=== PATIENT | male | born 1945 | race Caucasian/White ===

== ENCOUNTER 2016-12-13 14:10 | Emergency (ER) | payer MEDICARE ==
[~2016-12-13] VITALS: Ht 175.3 cm; Wt 90.9 kg
[2016-12-13 14:13] VITALS: BP 109/79; PULSE 68; RESP 16; O2SAT 95
--- NOTE | 2016-12-13 14:29 | ED.REPORT ---
HPI-GI Bleed Date of Service December 13, 2016 ED Provider: Cornell Turner MD The patient is a 71 year old male with history of AVM malformations with surgical repairs, aortic aneurysm repair, and bladder cancer, who presents to the emergency department complaining of an episode of diarrhea with bright red stools that occurred at 1200 today. He feels fine at this time. He denies abdominal pain, nausea, vomiting, fever, black/tarry stools or chest pain. Nursing Notes Stated Complaint: BLEEDING FROM RECTUM Chief Complaint: General Complaint Nursing Notes Reviewed: Yes Allergies: Coded Allergies: No Known Allergies (Unverified Allergy, Unknown, 12/13/16) Scheduled Amlodipine (Amlodipine) 10 Mg Tablet 10 MG PO DAILY Doxazosin Mesylate (Doxazosin Mesylate) 8 Mg Tablet 8 MG PO HS Gemfibrozil (Gemfibrozil) 600 Mg Tablet 600 MG PO DAILY Metoprolol Tartrate (Metoprolol Tartrate) 25 Mg Tablet 12.5 MG PO BID Omeprazole (Omeprazole) 20 Mg Capsule.dr 20 MG PO BID General Time Seen by Provider: 14:30 Chief Complaint Chief Complaint: Stool bright red blood Bleeding Severity: Moderate Hx Obtained From: Patient, Spouse Arrived By: Walk-in Onset Occurred: 1 - 4 hours ago Symptom Duration: 1 - 15 minutes Progression Since Onset: Resolved Severity: Current: No pain currently Severity: Maximum: No pain Recent Healthcare: No recent doctor visit, No recent hospitalization Similar Sx Previous: No Past Medical History Past Medical History Bladder cancer AVM malformations with surgical repair Past Surgical History Aortic aneurysm repair AVM surgery Family History Noncontributory Smoking History Unknown if Ever Smoker Social History Alcohol Use: Denies alcohol use Other Social History: Good social support, , Local resident Ambulatory Status Independent Review of Systems Cardiovascular: Denies: Chest pain GI: Reports: Diarrhea, Hematochezia (bright red bloody stool), Denies: Abdominal pain, Melena, Nausea, Vomiting Complete sys rev & neg: except as marked. Physical Exam Initial Vital Signs Vital Signs (First) Date Time Temp Pulse Resp B/P Pulse Ox O2 Delivery O2 Flow Rate FiO2 12/13/16 14:13 36.7 68 16 109/79 95 12/13/16 15:36 Room Air Initial VS: Reviewed Head / Eyes: Atraumatic, Normocephalic, PERRL ENT: Mucous membranes moist, Conjunctiva normal, No scleral icterus Neck: Supple, Non-tender, Full range of motion Lymphatic: No lymphadenopathy Extremities: Vascular intact, Neuro intact, No swelling, No tenderness Skin: Warm, Dry, No cyanosis Neurologic: Alert, Oriented, Nonfocal Psychiatric: Mood/affect normal, Behavior normal, Normal thought content General/Constitutional: Awake, Alert Respiratory / Chest: Atraumatic, Breath sounds NL, Breath sounds = bilat, No respiratory distress, No rales, No rhonchi, No wheezing Cardiovascular: Heart rate NL, Regular rhythm, Heart sounds NL, No murmurs, Cap refill not delayed, Peripheral circulation NL Abdomen: Atraumatic, Soft, Non-tender, No guarding, No rebound, BS normoactive , No distention, No palpable mass, No pulsatile mass Rectum / Perineum: Atraumatic, Blood - occult heme -, No gross blood Interpretation & Diagnostics Lab Results Interpretation Result Diagram: 12/13/16 1440 12/13/16 1440 Test 12/13/16 14:40 White Blood Count 4.6th/mm3 (3.8-10.1) Red Blood Count 4.56mil/mm3 (4.40-5.80) Hemoglobin 13.5g/dL (13.8-17.2) Hematocrit 40.5% (41.0-50.0) Mean Corpuscular Volume 88.8fL (81-100) Mean Corpuscular Hemoglobin 29.6pg (27.0-35.0) Mean Corpuscular Hemoglobin Concent 33.3% (32.0-37.0) Red Cell Distribution Width 13.8% (12.3-15.4) Platelet Count 184bil/L (150-400) Neutrophils (%) (Auto) 66.3% (40-74) Lymphocytes (%) (Auto) 22.9% (14-46) Monocytes (%) (Auto) 8.4% (4-12) Eosinophils (%) (Auto) 0.4% (0-5) Basophils (%) (Auto) 0.2% (0-3) Prothrombin Time 12.0sec (8.1-12.5) Prothromb Time International Ratio 1.12ratio Sodium Level 141mEq/L (134-144) Potassium Level 3.4mEq/L (3.5-5.2) Chloride Level 100mEq/L (97-108) Carbon Dioxide Level 22mmol/L (18-29) Blood Urea Nitrogen 11mg/dL (8-27) Creatinine 1.25mg/dL (0.76-1.27) Estimat Glomerular Filtration Rate 60mL/min (>59) Glucose Level 194mg/dL (60-99) Calcium Level 8.7mg/dL (8.5-10.1) Total Bilirubin 0.4mg/dL (0.0-1.2) Aspartate Amino Transf (AST/SGOT) 27U/L (0-50) Alanine Aminotransferase (ALT/SGPT) 25U/L (0-44) Alkaline Phosphatase 66U/L (25-160) Troponin T < 0.010ug/L (0.0-0.011) Total Protein 6.8g/dL (6.4-8.4) Albumin 3.2g/dL (3.4-5.0) ECG Interpretation ECG Interpretation: Sinus tachycardia with a rate of 94 Supraventricular bigeminy RBBB Time: 14:36 Interpreted by: ED physician Re-Eval/Medical Decision Med Decision/Clinical Course 71-year-old male history of brain AVMs presenting with one episode of diarrhea earlier today with blood. On arrival guaiac negative no gross blood. Hemoglobin is stable. He has no abdominal pain or tenderness. He did have mild tachycardia initially which resolved with IV fluids. His labs are stable. Patient with diarrhea and GI bleed which is resolved. Given resolution of bleeding and guaiac negative with normal vital signs and stable hemoglobin, patient stable for discharge home with follow-up with primary doctor tomorrow. No prior history of GI bleeds. Return precautions given if any bloody stools, melena, lightheadedness, dizziness, any other signs symptoms of anemia or GI bleed. Source of Hx: Old records, Family Re-Evaluation/Progress : Time of Eval: 15:48 Re-Evaluation/Progress Note: Rechecked the patient. Discussed results, diagnosis, and plan for discharge. All questions were addressed. Counseled Regarding: Diagnosis, Lab results, Need for follow-up, When/why to return to ED Discharge & Departure Impression: Primary Impression: GI bleed GI bleed type/associated pathology: unspecified gastrointestinal hemorrhage type Qualified Code: K92.2 - Gastrointestinal hemorrhage, unspecified Additional Impression: Diarrhea Diarrhea type: unspecified type Qualified Code: R19.7 - Diarrhea, unspecified Disposition: Home Discharge Condition All VS Reviewed: Yes Condition: Stable Additional Instructions: Thank you for entrusting us with your care today. Your workup today included labs and an EKG. Your results are reassuring. You do however need to followup with your regular doctor for re-evaluation in the next day or two. You may need to have a colonoscopy. Return to the emergency department for any new or worsening symptoms, specifically: recurrent bloody stools, tarry stools, abdominal pain, nausea, vomiting, lightheadedness, dizziness, chest pain or shortness of breath. Referrals: Salinas Pastrana MD (PCP) Scribe Attestation Portions of this note were transcribed by Kat Lamar. I, Dr. Turner personally performed the history, physical exam and medical decision-making; I reviewed and confirmed the accuracy of the information in the transcribed note. Signed by: Petros Sebastian, 12/13/2016 at 1610. copies to: Salinas Pastrana MD, Ben M MD December 13, 2016 14:29 Kat Lamar December 13, 2016 14:35
[2016-12-13] MEDS ORDERED: 0.9% Sodium Chloride 1,000 ML IV ONE (14:40)
[2016-12-13 15:04] LABS: BASOPHILS % (AUTO) 0.2 % (0-3); EOSINOPHILS % (AUTO) 0.4 % (0-5); MONOCYTES % (AUTO) 8.4 % (4-12); Mean Corpuscular Hemoglobin 29.6 pg (27.0-35.0); Mean Corpuscular Volume 88.8 fL (81-100); NEUTROPHILS % (AUTO) 66.3 % (40-74); Platelet Count 184 bil/L (150-400)
[2016-12-13 15:20] LABS: INR 1.12 ratio
[2016-12-13 15:36] VITALS: BP 119/74; PULSE 87; RESP 19; O2SAT 93
[2016-12-13 15:43] LABS: TROPONIN T < 0.010 ug/L (0.0-0.011)
[2016-12-13] MEDS ORDERED: OMEP20CA11 PO (15:44)
[2016-12-13] MEDS ORDERED: METO25TA6 PO (15:46)
[2016-12-13] MEDS ORDERED: DOXA8TAB73 PO (15:46)
[2016-12-13] MEDS ORDERED: GEMF600T3 PO (15:46)
[2016-12-13] MEDS ORDERED: AMLO10TA3 PO (15:46)
[2016-12-13 17:16] VITALS: BP 123/82; PULSE 87; RESP 16; O2SAT 95
== END 2016-12-13 17:23 | disposition home or self-care (01) ==
LOC: SED 14:10
DX: K92.2 Gastrointestinal hemorrhage, unspecified (principal); R19.7 Diarrhea, unspecified
CPT/HCPCS: 36415; 80053; 84484; 85025; 85610; 86850; 93005; 96360; 99285; J7030

== ENCOUNTER 2017-03-14 10:45 | Day surgery (SDC) | payer MEDICARE ==
[~2017-03-14] VITALS: Ht 175.3 cm; Wt 90.7 kg
[~2017-03-14 10:45] MED LIST: 0.9% Sodium Chloride 1,000 ML IV SCH; AMLO10TA3 PO; CALC-72 PO; DOXA8TAB73 PO; GEMF600T3 PO; LOM PO; METO-272 PO; METO25TA99 PO; OMEP20CA11 PO; POTA20TA16 PO; Sodium Chloride LOK Flush 10 mL Syringe IV PRN; fentaNYL-PF 50 mCg/mL 2 mL Inj IVPUSH PRN
[2017-03-14 11:01] VITALS: BP 159/109; PULSE 81; RESP 16; O2SAT 96
[2017-03-14] MEDS ORDERED: 0.9% Sodium Chloride 1,000 ML IV ONE (12:09)
[2017-03-14 13:13] VITALS: BP 124/80; PULSE 78; O2SAT 93
[2017-03-14 13:23] VITALS: BP 129/75; PULSE 73; RESP 16; O2SAT 90
[2017-03-14 13:33] VITALS: BP 140/77; PULSE 72; RESP 16; O2SAT 96
[2017-03-14 13:43] VITALS: BP 146/94; PULSE 72; RESP 16; O2SAT 94
--- NOTE | 2017-03-14 13:57 | ENDO ---
[address] [address] ENDOSCOPY PROCEDURE PATIENT: SHAWNEE WIGGINS : 1945 MR#: [id number] ADMIT: 03/14/2017 JOB ID: [id number] DATE OF SERVICE: 03/14/2017 PRIMARY PROVIDER: Salinas Pastrana MD PROCEDURE: Colonoscopy with hot snare polypectomy, hot forcep polypectomy and an upper endoscopy with biopsies. INDICATIONS: A 72-year-old male with a lengthy history of reflux. He remains on omeprazole. He reports a tendency toward diarrhea. Additionally, the patient reports having had a colonoscopy a number of years ago where 25 polyps were removed. I did not see the report nor pathology on this. EQUIPMENT: GIFH-180J and a PCFH-180AL SEDATION: 7 mg Versed and 125 mcg fentanyl. COMPLICATIONS: None identified. BOWEL PREPARATION: Fair, adequate exam. PROCEDURE INFORMATION: After the risks and benefits were explained, written and verbal informed consent was obtained. The patient was brought into the endoscopy suite and placed in the left lateral decubitus position. Sedation was achieved as above. The scope was introduced into the mouth through the bite block, and advanced to the second portion of the duodenum. The scope was slowly withdrawn to carefully examine the mucosa for any defects or lesions. Retroflexed views were accomplished in the stomach. The stomach was decompressed. The scope removed from the patient who tolerated the procedure well. The patient was then turned around. A digital rectal examination accomplished. No significant pathology apart from some mild internal hemorrhoids. The scope was introduced into the rectum and advanced to the cecum as identified by the appendiceal orifice and ileocecal valve. The scope was slowly withdrawn to carefully examine the mucosa for any defects or lesions. Multiple direct views were made through the dentate line for exclusion of pathology. The colon was decompressed. The scope removed from the patient who tolerated the procedure well. This was an exceedingly prolonged exam. The patient had numerous polyps; perhaps as many as 40 or 50 seen today. Because of the length of the exam and number of polypectomies involved, I have requested a 22 modifier for this study. FINDINGS: 1. Duodenum: No significant mucosal abnormality appreciated. Random biopsies were taken for exclusion of celiac considering the patient's history. However, there were at least three polyps seen within the duodenum from bulb through to the second portion. One of these was sampled for evaluation of adenomatous features. These polyps ranged in size from about 5 to about 7 mm. 2. Stomach: The patient had diffuse mild gastropathy. No ulcers. No outlet obstruction. No mass lesions. Random gastric biopsy was taken for exclusion of Helicobacter or other pathology. Retroflexed views of the LES were rather unremarkable. There was a small gastric polyp that was addressed with cold forceps as well. 3. Esophagus: The squamocolumnar junction generally correlated with the top of the gastric folds. The GEJ was at 35 cm from the incisors. No acute erosive changes. No strictures. No mass lesions. No visual suggestion of significant Stanley's. 4. Terminal ileum: This was briefly interrogated and the very terminal aspect demonstrated normal healthy noninflammatory villi. 5. Colon: Was a little challenging to finally arrive in cecum secondary to some colon redundancy. There were too numerous to count polyps all throughout the colon. These ranged in size from 4 or 5 mm up to beyond 2 cm. We left small polyps in situ today. I addressed seven other polyps more concerning in size. One of these came from the cecum and was approximately 0.5 cm away from the appendiceal orifice. This measured somewhere in the neighborhood of about 1 cm. Six other polyps were seen throughout the colon and resected with a combination of hot snare using both Jumbo and regular snare along with clean up on one of the polyps with hot forceps. Some of these polyps were not fully retrieved. I estimated that we retrieved perhaps 4, maybe 5 of the 7 polyps for histology. We out a much larger polyp in the ascending colon that was perhaps somewhere in the neighborhood of about 2 cm sessile in nature. This was successfully resected with the Jumbo snare. I submitted this for histopathology separately. ENDOSCOPIC DIAGNOSES: 1. Duodenal polyps. 2. Gastric polyp. 3. Gastropathy. 4. Subtle sliding hiatal hernia. 5. Gastric polyps (?) raises the question of an attenuated familial adenomatous polyposis syndrome as these all appear to suggest adenomatous features). RECOMMENDATIONS: 1. Await histopathology. 2. A small bowel capsule endoscopy is requested to evaluate for the presence of small-bowel polyposis in light of what we saw visually from above and below today. This will help determine the role of small-bowel double balloon enteroscopy. 3. If adenomatous features are identified in the duodenal polyps then an early repeat EGD will be pursued for resection of what we can address with our conventional endoscopic approach. That said, if the capsule suggests there are numerous polyps further downstream, I would be inclined to simply set him up for a double balloon in [place]. 4. Repeat colonoscopy in approximately 3-4 months. At that time, will attempt to remove the residual polyps left behind, today. I would recommend a 90 minute slot.
--- NOTE | 2017-03-16 17:52 | PATH ---
SURGICAL PATHOLOGY Attending Physician:Anibal Arteaga CASE STATUS: Signed Out PATIENT NAME: SHAWNEE WIGGINS JR PID: [id number] : 1945 DATE COLLECTED:03/14/2017 20:16 SPECIMEN: 1: Duodenum, Biopsy 2: Duodenum, Biopsy 3: Gastric, Biopsy 4: Stomach, Polyp, Biopsy 5: Colon, Polyp 6: Colon, Polyp CLINICAL HISTORY: 1). RANDOM DUODENUM BIOPSY 2). DUODENUM POLYP BIOPSY 3). GASTRIC BIOPSY 4). GASTRIC POLYP BIOPSY 5). ASCENDING POLYP 6). COLON POLYPS FINAL DIAGNOSIS: 1.RANDOM DUODENUM, BIOPSY: SMALL BOWEL MUCOSA WITH NO DIAGNOSTIC ABNORMALITY. Negative for active inflammation, features of sprue, dysplasia, and malignancy. 2.DUODENUM, POLYP, BIOPSY: DUODENAL MUCOSA WITH PROMINENT MINDY' S GLANDS. Negative for dysplasia and malignancy. 3.GASTRIC BIOPSY: GASTRIC BODY-TYPE MUCOSA WITH NO DIAGNOSTIC ABNORMALITY. Negative for Helicobacter pylori microorganisms. Negative for intestinal metaplasia. Negative for dysplasia and malignancy. 4.GASTRIC POLYP, BIOPSY: FUNDIC GLAND POLYP. Negative for Helicobacter pylori microorganisms. Negative for intestinal metaplasia. Negative for dysplasia and malignancy. 5.ASCENDING COLON POLYP, BIOPSY: FRAGMENTS OF TUBULAR ADENOMA. 6.COLON POLYPS, BIOPSY: FRAGMENTS OF TUBULAR ADENOMA. ICD10 D12.6 GROSS DESCRIPTION: The specimen is received in six formalin filled containers labeled with the patient's name. 1). The specimen is labeled "random duod" and consists of 2 portions of tissue which aggregate to 0.3 x 0.2 x 0.2 CM. The specimen is entirely submitted in cassette 1A. 2). The specimen is labeled "duodenal polyp" and consists of a 0.3 x 0.3 x 0.3 CM portion of tissue which is entirely submitted in cassette 2A. 3). The specimen is labeled "gastric" and consists of a 0.1 x 0.1 x 0.1 CM portion of tissue which is entirely submitted in cassette 3A. 4). The specimen is labeled "gastric polyps" and consists of a 0.3 x 0.2 x 0.2 CM portion of tissue which is entirely submitted in cassette 4A. 5). The specimen is labeled "ascending polyp" and consists of a 1.2 x 1.0 x 1.0 CM portion of tissue which is sectioned into 4 pieces and entirely submitted in cassette 5A. 6). The specimen is labeled "colon polyps" and consists of multiple portions of tissue which aggregate to 1.4 x 1.4 x 0.6 CM. The largest fragments are sectioned, and all fragments are totally submitted in cassette 6A. 03/14/2017DC MICRO DESCRIPTION: See diagnosis. ICD-9 CODES: CPT CODES: 1: 86188 2: 06870 3: 25463 4: 90062 5: 56553 6: 12241 Electronically Signed Out Ivan Valente MD [facility] [address], [place] [address] Technical component performed at [facility], [facility] [address], [place], [address]
== END 2017-03-14 23:59 | disposition home or self-care (01) ==
LOC: END 10:45
PROVIDERS: ATTEND Internal Medicine Gastroenterology
DX: Z12.11 Encounter for screening for malignant neoplasm of colon (principal); D12.2 Benign neoplasm of ascending colon; D12.0 Benign neoplasm of cecum; K31.7 Polyp of stomach and duodenum; K21.9 Gastro-esophageal reflux disease without esophagitis; Z86.010 Personal history of colon polyps; K44.9 Diaphragmatic hernia without obstruction or gangrene
CPT/HCPCS: 43239; 45384; 45385; 99153; G0500; J2250; J3010; J7030